=== PATIENT | male | born 1930 | race Caucasian/White ===

== ENCOUNTER 2017-04-14 15:23 | Emergency (ER) | payer MEDICARE, OTHER ==
[~2017-04-14] VITALS: Ht 165.1 cm; Wt 110.2 kg
[~2017-04-14 15:23] MED LIST: ACET500 PO; AMOX500 PO; AZIT250 PO; BCOIRO PO; BENZ100A PO; CODGUAEL PO; DIAZ2 PO; DIOVAN HCT PO; DIOVAN/HCT; Diovan Hct 1601 EACH PO; FELO5CR; FELO5CR PO; FURO40; FURO40 PO; FUROSEMIDE; Felodipine ER5 MG PO; GUAI120S1 PO; HYDACE5 PO; IBUP800 PO; IBUPROFEN; K-Dur20 MEQ PO; Keppra750 MG PO; LEVE500 PO; LEVOTHYROID; LEVSOD100 PO; LISINOPRIL; METO25ER PO; MULVITA; MULVITMINF PO; Macrobid 100 M100 MG PO; Norco 5-325 Ta1 EACH PO; OXYACE5T PO; PLAVIX; PLENDIL; POTA10T PO; POTCHL20ER; POTCHL20ER PO; PRAV20; PRAV20 PO; Pravachol40 MG PO; TAMS.4ER; TAMS.4ER PO; THYR60; TRIA80TC TOP; TYLENOL; VALS80 PO; WARF5 PO
== END 2017-04-14 16:14 | disposition home or self-care (01) ==
LOC: ER 15:23
DX: Z46.6 Encounter for fitting and adjustment of urinary device (principal); I48.91 Unspecified atrial fibrillation; I10 Essential (primary) hypertension; E78.5 Hyperlipidemia, unspecified; Z79.899 Other long term (current) drug therapy; Z79.01 Long term (current) use of anticoagulants; Z86.73 Personal history of transient ischemic attack (TIA), and cerebral infarction without residual deficits
CPT/HCPCS: 51798; 99283

== ENCOUNTER 2017-04-17 06:50 | Emergency (ER) | payer MEDICARE, OTHER ==
[~2017-04-17] VITALS: Ht 170.2 cm; Wt 110.2 kg
[2017-04-17] MEDS ORDERED: ASPI81CH PO (07:00)
[2017-04-17] MEDS ORDERED: SYNTHROID25 MCG PO (07:01)
[2017-04-17] MEDS ORDERED: METO25ER PO (07:01)
[2017-04-17] MEDS ORDERED: SYNTHROID112 MCG PO (07:02)
[2017-04-17] MEDS ORDERED: FURO40 PO (07:02)
[2017-04-17] MEDS ORDERED: Midodrine HCl10 MG PO (07:03)
[2017-04-17] MEDS ORDERED: Pantoprazole So40 MG PO (07:04)
[2017-04-17] MEDS ORDERED: CLOP75 PO (07:05)
[2017-04-17 07:51] LABS: BASOPHILS ABSOLUTE AUTO 0.02 K/mm3 (0.00-0.23); BASOPHILS PERCENT AUTO 0 % (0-2); EOSINOPHILS ABSOLUTE AUTO 0.37 K/mm3 (0.00-0.68); EOSINOPHILS PERCENT AUTO 7 % (0-6); Hematocrit 30.9 % (37.0-53.0); Hemoglobin 9.9 g/dL (13.5-17.5); IMMATURE GRAN ABSOLUTE AUTO 0.02 K/mm3 (0.00-0.10); IMMATURE GRAN PERCENT AUTO 0 % (0-1); LYMPHOCYTES ABSOLUTE AUTO 0.59 K/mm3 (0.84-5.20); LYMPHOCYTES PERCENT AUTO 11 % (21-46); MONOCYTES ABSOLUTE AUTO 0.48 K/mm3 (0.16-1.47); MONOCYTES PERCENT AUTO 9 % (4-13); Mean Corpuscular Volume 100 fL (80-100); Mean Platelet Volume 9.4 fL (9.1-12.4); NEUTROPHILS ABSOLUTE AUTO 3.78 K/mm3 (1.96-9.15); NEUTROPHILS PERCENT AUTO 72 % (41-73); Platelet Count 131 K/mm3 (150-400); RDW Coefficient Variation 15.9 % (11.7-14.2); RDW Standard Deviation 58.1 fL (35.1-46.3); Red Blood Cell Count 3.09 M/mm3 (4.30-5.90); White Blood Cell Count 5.26 K/mm3 (4.00-11.30)
[2017-04-17 08:07] LABS: Anion Gap 5 mmol/L (6-16); Blood Urea Nitrogen 18 mg/dL (8-24); Bun/Creatinine Ratio 16.1 (12.0-20.0); CO2, Blood 28 mmol/L (21-32); Calcium, Blood 8.2 mg/dL (8.5-10.1); Chloride, Blood 110 mmol/L (98-108); Creatinine, Blood 1.12 mg/dL (0.60-1.20); Glomerular Filtration Rate >60 (60-); Glucose, Blood 99 mg/dL (70-99); Potassium, Blood 3.5 mmol/L (3.5-5.5); Sodium, Blood 143 mmol/L (136-145)
[2017-04-17 08:11] LABS: International Normalized Ratio 1.19; Prothrombin Time Results 12.4 Sec (9.7-11.5)
[2017-04-17 08:31] LABS: Source, Urine Catheter
[2017-04-17 08:33] LABS: Bilirubin, Urine Neg (Neg); Blood, Urine 5+ (Neg); Glucose Qualitative, Urine Neg (Neg); Ketones, Urine Neg (Neg); Leukocyte Esterase, Urine 1+ (Neg); Nitrite, Urine Neg (Neg); Protein, Urine 3+ (Neg); Urobilinogen, Urine NORM (Normal)
[2017-04-17 08:38] LABS: Appearance, Urine Clear (Clear); Color, Urine Yellow (P-Yellow)
[2017-04-17 08:39] LABS: Bacteria Few /hpf; Red Blood Cells, Urine TNTC /hpf (0-2); Squamous Epithelial Cells Not Seen /hpf (Few); White Blood Cells, Urine 0-2 /hpf (0-5)
[2017-04-17 08:40] LABS: Renal Epithelial Rare /hpf (0-Rare)
== END 2017-04-17 10:37 | disposition home or self-care (01) ==
LOC: ER 06:50
PROVIDERS: Emergency Medicine
DX: R31.9 Hematuria, unspecified (principal); E11.9 Type 2 diabetes mellitus without complications; Z86.73 Personal history of transient ischemic attack (TIA), and cerebral infarction without residual deficits; Z96.651 Presence of right artificial knee joint; Z87.891 Personal history of nicotine dependence; Z79.82 Long term (current) use of aspirin; Z79.899 Other long term (current) drug therapy
CPT/HCPCS: 36415; 80048; 81001; 85025; 85610; 85730; 87086; 99283

== ENCOUNTER 2017-06-08 03:46 | Emergency (ER) | payer MEDICARE, OTHER ==
[~2017-06-08] VITALS: Ht 177.8 cm; Wt 103.9 kg
[~2017-06-08 03:46] MED LIST changes: +ASPI81CH PO; +CLOP75 PO; +Midodrine HCl10 MG PO; +Pantoprazole So40 MG PO; +SYNTHROID112 MCG PO; +SYNTHROID25 MCG PO
== END 2017-06-08 06:30 | disposition home or self-care (01) ==
LOC: ER 03:46
DX: T83.021A Displacement of indwelling urethral catheter, initial encounter (principal); E11.9 Type 2 diabetes mellitus without complications; Z79.899 Other long term (current) drug therapy; Z79.82 Long term (current) use of aspirin; Z86.73 Personal history of transient ischemic attack (TIA), and cerebral infarction without residual deficits; Z87.891 Personal history of nicotine dependence; W18.30XA Fall on same level, unspecified, initial encounter
CPT/HCPCS: 51700; 51702; 70450; 72125; 93005; 93010; 99284